=== PATIENT | female | born 1985 | race Caucasian/White ===

== ENCOUNTER → 2017-10-26 | Outpatient (CLI) | payer OTHER | LOC: OLC 09:56 | DX: Z39.1 Encounter for care and examination of lactating mother (principal); Z71.89 Other specified counseling ==

== ENCOUNTER → 2018-10-24 | Outpatient (CLI) | payer OTHER | LOC: COL.VAS 10-22 15:15 | DX: I51.7 Cardiomegaly (principal) ==

== ENCOUNTER 2020-07-09 13:27 | Outpatient (RCR) | payer OTHER | END 2020-08-18 13:13 | disposition home or self-care (01) | LOC: WSOH 13:27 | DX: S61.002A Unspecified open wound of left thumb without damage to nail, initial encounter (principal); W55.01XA Bitten by cat, initial encounter; T78.40XA Allergy, unspecified, initial encounter; Z87.59 Personal history of other complications of pregnancy, childbirth and the puerperium ==

== ENCOUNTER 2021-02-14 13:12 | Emergency (ER) | payer OTHER ==
[~2021-02-14] VITALS: Ht 160 cm; Wt 65.9 kg
[2021-02-14 13:31] VITALS: TEMP 98.9
[2021-02-14] MEDS ORDERED: MULTI-VITAMIN W1 TA1 PO (13:48)
[2021-02-14] MEDS ORDERED: FLONASE NASAL S16 GM NS (13:49)
[2021-02-14] MEDS ORDERED: ZYRTEC ALLERGY10 MG PO (13:50)
[2021-02-14] MEDS ORDERED: VITAMIN D 400400 IU PO (13:51)
[2021-02-14] MEDS ORDERED: LEVAQUIN 5500 MG/TA1 PO (14:51)
[2021-02-14] MEDS ORDERED: CLEOCIN HCL300 MG PO (14:51)
[2021-02-14 15:14] VITALS: BP 117/87; PULSE 81
== END 2021-02-14 15:14 | disposition home or self-care (01) ==
LOC: COL.ER 13:12
DX: S51.851A Open bite of right forearm, initial encounter (principal); W54.0XXA Bitten by dog, initial encounter

== ENCOUNTER → 2023-09-15 | Outpatient (CLI) | payer OTHER ==
[~2023-09-15] MED LIST: CLEOCIN HCL300 MG PO; FLONASE NASAL S16 GM NS; LEVAQUIN 5500 MG/TA1 PO; MULTI-VITAMIN W1 TA1 PO; VITAMIN D 400400 IU PO; ZYRTEC ALLERGY10 MG PO
== END ==
LOC: MC.RAD 10:57
DX: Z12.31 Encounter for screening mammogram for malignant neoplasm of breast (principal)